=== PATIENT | female | born 1985 | race Caucasian/White ===

== ENCOUNTER 2018-05-26 10:19 | Emergency (ER) | payer SELFPAY ==
[~2018-05-26] VITALS: Ht 160 cm; Wt 63.6 kg
[~2018-05-26 10:19] MED LIST: BCP TD; NO HOME MEDICATIONS
[2018-05-26 10:20] VITALS: TEMP 97.6
[2018-05-26] MEDS ORDERED: XANAX 1MG1 MG PO (10:48)
[2018-05-26 11:11] LABS: BASO % 0.3 % (0.0-2.0); EOS # 0.1 (0.0-0.7); EOS % 0.8 % (0-4.0); GRAN # 4.4 (1.4-6.5); GRAN % 56.9 % (42.2-75.2); HEMATOCRIT 42.1 % (37.0-47.0); HEMOGLOBIN 14.6 g/dl (12.5-16.0); LYMPH # 2.7 (1.2-3.4); LYMPH % 34.6 % (20.0-51.0); MEAN CELL VOLUME 92 fl (80.0-100.0); MEAN CORPUSCULAR HEMOGLOBIN 32 pg (27.0-31.0); MEAN CORPUSCULAR HGB CONC 35 g/dl (33.0-37.0); MEAN PLATELET VOLUME 10.3 fl (7.4-10.4); MONO # 0.5 (0.1-0.6); PLATELET COUNT 206 K/mm3 (130-400); RED BLOOD COUNT 4.58 M/mm3 (4.10-5.30); REDCELL DISTRIBUTION WIDTH-CV 12.2 % (11.5-14.5)
[2018-05-26 11:25] LABS: ALANINE AMINOTRANSFERASE 67 U/L (9-52); ALBUMIN 3.7 gm/dL (3.5-5.0); ALKALINE PHOSPHATASE 61 U/L (50-136); ANION GAP 10 mmol/L (7-16); AST,SGOT 87 U/L (15-37); BILIRUBIN,TOTAL 0.4 mg/dL (0.0-1.0); BLOOD UREA NITROGEN 10 mg/dL (7-17); CALCIUM 8.4 mg/dL (8.4-10.2); CARBON DIOXIDE 27 mmol/L (22-30); CHLORIDE 104 mmol/L (98-107); CREATININE, serum 0.79 mg/dL (0.52-1.25); GLUCOSE 92 mg/dL (74-106); POTASSIUM 3.1 mmol/L (3.4-5.0); SODIUM 141 mmol/L (137-145); TOTAL PROTEIN 7.1 gm/dL (6.4-8.2)
[2018-05-26 11:26] LABS: ALCOHOL(ethanol),MEDICAL < 10 mg/dL; C-REACTIVE PROTEIN 0.5 mg/dL (0.0-0.9)
[2018-05-26 11:34] LABS: ARTERIAL BLD GAS O2 SATURATION 97.5 % (92-100); ARTERIAL BLD GAS TCO2 CT 27.8; ARTERIAL BLOOD GAS BASE EXCESS -0.7 (-2-2); ARTERIAL BLOOD GAS HCO3 26.2 meq/L (22-26); ARTERIAL BLOOD GAS PCO2 52.1 mmHg (35-45); ARTERIAL BLOOD GAS PO2 115.5 mmHg (80-100); ARTERIAL BLOOD GAS pH 7.32 (7.35-7.45)
[2018-05-26 12:08] LABS: MUCOUS Present /lpf; PH 5 (5-8); SQUAMOUS EPITHELIAL 0-2 /hpf; URINE APPEARANCE Hazy; URINE BACTERIA None Seen /hpf; URINE BILIRUBIN Negative (NEGATIVE); URINE BLOOD Negative (NEGATIVE); URINE COLOR Amber; URINE GLUCOSE Negative (NEGATIVE); URINE KETONE 1+ (NEGATIVE); URINE LEUKOCYTE ESTERASE Trace (NEGATIVE); URINE NITRATE Negative (NEGATIVE); URINE PROTEIN(semi-quant) 2+ (NEGATIVE); URINE UROBILINOGEN >=4.0 mg/dL (NEGATIVE)
[2018-05-26 12:27] LABS: TRICYCLIC ANTIDEPRESS URINE NEGATIVE
[2018-05-26 12:31] VITALS: BP 115/74; PULSE 89
[2018-05-26 12:42] LABS: COLLECTION METHOD CATHETER
[2018-05-26] MEDS ORDERED: PROZAC 20MG20 MG PO (16:25)
[2018-05-26] MEDS ORDERED: NALOXONE 1MG/1 MG/ML IJ (17:43)
== END 2018-05-26 12:31 | disposition left against medical advice (07) ==
LOC: COL.ER 10:19
PROVIDERS: Family Medicine
DX: T40.601A Poisoning by unspecified narcotics, accidental (unintentional), initial encounter (principal); R09.02 Hypoxemia; F17.210 Nicotine dependence, cigarettes, uncomplicated
CPT/HCPCS: J2405; J7030

== ENCOUNTER 2018-05-26 16:15 | Emergency (ER) | payer SELFPAY ==
[~2018-05-26] VITALS: Ht 63 cm; Wt 62.7 kg
[~2018-05-26 16:15] MED LIST changes: +XANAX 1MG1 MG PO
[2018-05-26 16:17] VITALS: TEMP 97
[2018-05-26] MEDS ORDERED: PROZAC 20MG20 MG PO (16:25)
[2018-05-26 17:42] VITALS: BP 112/84; PULSE 95
[2018-05-26] MEDS ORDERED: NALOXONE 1MG/1 MG/ML IJ (17:43)
== END 2018-05-26 18:13 | disposition home or self-care (01) ==
LOC: COL.ER 16:15
DX: T40.2X1A Poisoning by other opioids, accidental (unintentional), initial encounter (principal); F17.210 Nicotine dependence, cigarettes, uncomplicated
CPT/HCPCS: J0696; J7030

== ENCOUNTER 2018-09-25 18:08 | Emergency (ER) | payer OTHER ==
[~2018-09-25] VITALS: Ht 160 cm; Wt 59.1 kg
[~2018-09-25 18:08] MED LIST changes: +NALOXONE 1MG/1 MG/ML IJ; +PROZAC 20MG20 MG PO
[2018-09-25 18:12] VITALS: TEMP 97.8
[2018-09-25 19:25] LABS: BASO % 0.3 % (0.0-2.0); GRAN # 8.1 (1.4-6.5); GRAN % 68.3 % (42.2-75.2); HEMATOCRIT 49.2 % (37.0-47.0); HEMOGLOBIN 17.2 g/dl (12.5-16.0); LYMPH # 2.6 (1.2-3.4); LYMPH % 21.9 % (20.0-51.0); MEAN CELL VOLUME 88 fl (80.0-100.0); MEAN CORPUSCULAR HEMOGLOBIN 31 pg (27.0-31.0); MEAN CORPUSCULAR HGB CONC 35 g/dl (33.0-37.0); MEAN PLATELET VOLUME 9.4 fl (7.4-10.4); MONO # 1.1 (0.1-0.6); MONO % 9.1 % (1.7-9.3); PLATELET COUNT 296 K/mm3 (130-400); RED BLOOD COUNT 5.57 M/mm3 (4.10-5.30); REDCELL DISTRIBUTION WIDTH-CV 12.5 % (11.5-14.5)
[2018-09-25 19:35] LABS: ALANINE AMINOTRANSFERASE 16 U/L (9-52); ALBUMIN 5.2 gm/dL (3.5-5.0); ALKALINE PHOSPHATASE 95 U/L (50-136); ANION GAP 13 mmol/L (7-16); AST,SGOT 24 U/L (15-37); BILIRUBIN,TOTAL 1.4 mg/dL (0.0-1.0); BLOOD UREA NITROGEN 24 mg/dL (7-17); C-REACTIVE PROTEIN < 0.5 mg/dL (0.0-0.9); CALCIUM 10.1 mg/dL (8.4-10.2); CARBON DIOXIDE 23 mmol/L (22-30); CHLORIDE 106 mmol/L (98-107); CREATININE, serum 0.95 mg/dL (0.52-1.25); GLUCOSE 92 mg/dL (74-106); POTASSIUM 4.2 mmol/L (3.4-5.0); SODIUM 143 mmol/L (137-145); TOTAL PROTEIN 10.2 gm/dL (6.4-8.2)
[2018-09-25 21:22] VITALS: BP 130/85; PULSE 86
== END 2018-09-25 21:22 | disposition home or self-care (01) ==
LOC: COL.ER 18:08
PROVIDERS: Emergency Medicine
DX: F11.23 Opioid dependence with withdrawal (principal); E86.0 Dehydration
CPT/HCPCS: J2405; J7030